=== PATIENT | female | born 1935 | race Caucasian/White ===

== ENCOUNTER → 2016-10-24 | Outpatient (CLI) | payer BC ==
[~2016-10-24] MED LIST: HYDR12.55; LPR25 PO; LPT40 PO; LSN20; NTRSLP4 SL; TMPOPS15
== END | disposition home or self-care (01) ==
LOC: C.MAMM 09:39
PROVIDERS: ATTEND Family Medicine
DX: M85.89 Other specified disorders of bone density and structure, multiple sites (principal)

== ENCOUNTER → 2017-06-27 | Outpatient (CLI) | payer BC | END | disposition home or self-care (01) | LOC: C.PATHSPEC 17:57 | PROVIDERS: ATTEND Plastic Surgery | DX: D17.79 Benign lipomatous neoplasm of other sites (principal) ==

== ENCOUNTER 2020-03-10 14:30 | Observation (INO) ==
--- NOTE | 2020-03-10 15:26 | Emergency Department Note ---
Impression & Plan Left-sided chest pain, Abnormal ECG, Chronic left shoulder pain ED Provider Note INFORMANT: Patient ED PROVIDER(S): Edvin Borges MD CHIEF COMPLAINT: Chest pain PLAN: Disposition: Admitted Condition: Good MEDICAL DECISION MAKING: The patient presented complaining of intermittent left-sided chest pain. She noted it was escalating over the last several days. She has a known history of mild coronary disease from a cath 5 years ago. Her CBC, chemistry panel, LFTs, lipase, and troponin were unremarkable. The patient had a negative chest x-ray. Her ECG did not reveal any obvious acute findings although it is abnormal. She does note ongoing problems with her left shoulder but these issues were not temporally related to the chest pain. Patient did receive aspirin prehospital. Given the complaint of chest pain and her results from 5 years ago further management in the hospital for cardiac rule out is appropriate. I discussed this with the patient. Consultation was made with Dr. Garrido of the [facility] service. Patient was evaluated in the ER for further management. Triage Nursing notes reviewed and agree them. Vital Signs: reviewed and remarkable for no significant abnormalities Differential diagnosis: Cardiac ischemia, aortic dissection, pulmonary embolism, pneumothorax, pneumonia, pericarditis, myocarditis, esophageal rupture, GERD, cholecystitis, pancreatitis, musculoskeletal, as well as other pathologies. Diagnostics interpreted by me: ECG: Twelve-lead ECG revealed a sinus rhythm at 62 bpm. There is a first-degree AV block. Left axis deviation. Incomplete right bundle branch block and septal Q waves. No ST elevation or depression. No PVCs. Cardiac Monitoring: Cardiac monitoring ordered by me: The patient was placed on continuous cardiac monitoring and observed. It revealed a normal sinus rhythm at 55 beats per minute without ectopy or evidence of dysrhythmia. Imaging studies: Chest x-ray. Findings: A chest x-ray was performed and revealed no pneumothorax, effusion, infiltrate, pulmonary edema, free air under the diaphragm, or wide mediastinum. Impression: No acute disease. Consultation(s): [facility] service HPI: The patient is a 84 year old female who presents to the Emergency Room with complaints of intermittent left-sided chest pain. This started about 5 days ago and is and is worsening. The patient also notes the following associated symptoms, feeling hot and flushed with exertion. The patient has taken no medication for relieving factors. Current pain is rated as 0/10. Patient states she has pain in her left breast area but also occasionally in the left shoulder joint. The 2 are not temporally related. She notes she can do physical activity using the left arm without experiencing left shoulder discomfort. She had cardiac catheterization 5 years ago and noted a 30 and 40% blockage. She does have history of hypertension. Pt denies LOC, headache, fevers, chills, diaphoresis, visual changes, neck pain, Covid exposure, flulike symptoms,, breathing difficulties, nausea, vomiting, abdominal pain, back pain, melena, hematochezia, urinary symptoms, numbness, weakness, lymphadenopathy, rash, or other complaints. ROS: See above HPI for pertinent positives & negatives. A total of 10 systems reviewed and were otherwise negative. PAST MEDICAL HISTORY:See Below, hypertension, CAD PAST SURGICAL HISTORY:See Below, cardiac catheterizations FAMILY HISTORY:See Below SOCIAL HISTORY:See Below, non-smoker HOME MEDICATIONS:See Below ALLERGIES:See Below VITALS:See Below PHYSICAL EXAMINATION: GENERAL: Awake, alert, well-appearing, in no distress HENT: Normocephalic, atraumatic. Oropharynx unremarkable. EYES: Normal conjunctiva. Sclera non-icteric. NECK: Inspection normal. Non-tender. Supple. No nuchal rigidity. FROM. No masses. RESPIRATORY: Clear to auscultation. No wheezes. No rales. Normal respiratory effort. CARDIAC: Normal rate. Normal rhythm. No murmurs. No rubs. Extremities warm and well perfused. Pulses equal. No JVD. GI: Soft, non-distended. No tenderness to palpation. No rebound or guarding. No masses. RECTAL: Deferred. MUSCULOSKELETAL: Atraumatic. Chest examination reveals no tenderness. The back is symmetrical on inspection without obvious abnormality. There is no CVA tenderness to palpation. No joint edema. LOWER EXTREMITIES: Calves are equal size bilaterally and non-tender. No edema. No discoloration. NEURO: Normal sensorium. No sensory or motor deficits noted. SKIN: No rash or jaundice noted. Edvin Borges MD Past Med/Surg History Medical History (Updated 03/10/20 @ 21:16 by Edvin Borges MD) HTN (hypertension) Nonobstructive atherosclerosis of coronary artery Surgical History (Updated 03/10/20 @ 18:53 by Piter Main) S/P cataract extraction S/P total abdominal hysterectomy Family History (Updated 03/10/20 @ 18:19 by Piter Main) Father Stroke Mother Alzheimer disease Social History (Updated 03/10/20 @ 18:52 by Piter Main) Smoking Status: Never smoker Hx Alcohol Use: Yes Alcohol type: wine Alcohol Intake Frequency Comment: 1 glass wine/day marital status: Single Current Living Situation: Alone current occupational status: 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 [employer] How many Children do You have: 0 Feels Safe at Home: Yes Allergies Allergies Allergy/AdvReac Type Severity Reaction Status Date / Time latex Allergy Unknown Rash Verified 03/10/20 15:36 Home Meds Home Medications Medication Instructions Recorded Confirmed amlodipine 2.5 mg PO DAILY 03/10/20 03/10/20 calcium carbonate-vitamin D3 1 cap PO BID 03/10/20 03/10/20 [Calcium 600 + D(3)] cholecalciferol (vitamin D3) 2,000 unit PO DAILY 03/10/20 03/10/20 [Vitamin D3] lisinopril 20 mg PO DAILY 03/10/20 03/10/20 metoprolol succinate 25 mg PO BID 03/10/20 03/10/20 hqnevoqv-asn-tgxt-FA-lutein 1 tab PO DAILY 03/10/20 03/10/20 [Multivitamin Women 50 Plus] omega-3 fatty acids [Fish Oil] 1,000 mg PO BID 03/10/20 03/10/20 vitamin E 400 unit PO DAILY 03/10/20 03/10/20 zolpidem 5 mg PO HS PRN 03/10/20 03/10/20 Results & Data (ED) Vital Signs Vital Signs - 24 hr 03/10/20 14:45 03/10/20 15:00 03/10/20 15:14 Temperature 36.8 C Temperature Source Oral Pulse Rate 68 Pulse Rate [Finger] 63 Pulse Rate from SpO2 Sensor Respiratory Rate 18 16 Respiratory Effort / Characteristics Respiratory Depth Blood Pressure 144/65 H Blood Pressure [Right Arm] 159/73 H Blood Pressure Mean 91 Blood Pressure Mean [Right Arm] 101 Pulse Oximetry 98 97 98 Oxygen Delivery Method Room Air Room Air Sepsis Recent Fever Within 48 Hours No Sepsis New/Unexplained Change in Mental Status N/A Sepsis Action Taken by Nursing No Action Required 03/10/20 16:00 03/10/20 16:42 03/10/20 18:33 Temperature Temperature Source Pulse Rate Pulse Rate [Finger] 66 69 81 Pulse Rate from SpO2 Sensor Respiratory Rate 18 18 16 Respiratory Effort / Characteristics Non-Labored Respiratory Depth Normal Blood Pressure Blood Pressure [Right Arm] 155/65 H 148/72 H 170/85 H Blood Pressure Mean Blood Pressure Mean [Right Arm] 95 97 113 Pulse Oximetry 98 98 99 Oxygen Delivery Method Room Air Sepsis Recent Fever Within 48 Hours Sepsis New/Unexplained Change in Mental Status Sepsis Action Taken by Nursing 03/10/20 19:00 03/10/20 19:30 03/10/20 20:00 Temperature Temperature Source Pulse Rate 72 73 65 Pulse Rate [Finger] Pulse Rate from SpO2 Sensor Respiratory Rate 18 21 21 Respiratory Effort / Characteristics Respiratory Depth Blood Pressure 147/74 H 153/69 H 145/62 H Blood Pressure [Right Arm] Blood Pressure Mean 83 79 84 Blood Pressure Mean [Right Arm] Pulse Oximetry 96 97 97 Oxygen Delivery Method Room Air Room Air Room Air Sepsis Recent Fever Within 48 Hours Sepsis New/Unexplained Change in Mental Status Sepsis Action Taken by Nursing 03/10/20 20:30 03/10/20 20:31 Temperature Temperature Source Pulse Rate 65 69 Pulse Rate [Finger] Pulse Rate from SpO2 Sensor 66 Respiratory Rate 12 15 Respiratory Effort / Characteristics Respiratory Depth Blood Pressure 152/64 H Blood Pressure [Right Arm] Blood Pressure Mean 79 Blood Pressure Mean [Right Arm] Pulse Oximetry 96 97 Oxygen Delivery Method Sepsis Recent Fever Within 48 Hours Sepsis New/Unexplained Change in Mental Status Sepsis Action Taken by Nursing Laboratory Data Result diagrams: 03/10/20 15:22 03/10/20 15:22 Lab Results 03/10/20 03/10/20 03/10/20 Range/Units 15:22 15:22 15:22 WBC 6.41 (4.8-10.8) K/uL RBC 4.22 (4.2-5.4) M/uL Hgb 13.9 (12.0-16.0) g/dL Hct 40.3 (37-47) % MCV 95.5 (80-100) fL MCH 32.9 (25-34) pg MCHC 34.5 (32-36) g/dL RDW Std Deviation 45.6 (36.4-46.3) fL RDW Coeff of Mak 13.0 (11.5-14.5) % Plt Count 196 (130-400) K/uL MPV 9.8 (7.4-10.4) fL Immature Gran % (Auto) 0.0 % Neut % (Auto) 67.0 % Lymph % (Auto) 25.6 % [place] % (Auto) 5.9 % Eos % (Auto) 0.9 % Baso % (Auto) 0.6 % Neut # (Auto) 4.29 (1.4-6.5) K/uL Lymph # (Auto) 1.64 (1.2-3.4) K/uL [place] # (Auto) 0.38 (0.11-0.59) K/uL Eos # (Auto) 0.06 (0-0.5) K/uL Baso # (Auto) 0.04 (0-0.2) K/uL Immature Gran # (Auto) 0.00 (0.00-0.02) K/uL PT 11.9 (9.0-12.0) Seconds INR 1.1 (0.9-1.1) APTT 32.7 H (21.0-31.0) Seconds PTT Ratio 1.2 Sodium 138 (136-145) mmol/L Potassium 4.0 (3.5-5.1) mmol/L Chloride 105 (98-107) mmol/L Carbon Dioxide 28 (21-32) mmol/L Anion Gap 5.0 (3-11) BUN 17 (7-18) mg/dl Creatinine 0.78 (0.6-1.2) mg/dl Est Cr Clr Drug Dosing 47.7 ml/min Est GFR ( Amer) 80.3 Est GFR (Non-Af Amer) 69.3 BUN/Creatinine Ratio 21.4 H (10-20) Glucose 110 H (70-99) mg/dl Calcium 9.3 (8.5-10.1) mg/dl Total Bilirubin 0.7 (0.2-1) mg/dl AST 40 H (15-37) U/L ALT 27 (12-78) U/L Alkaline Phosphatase 89 (45-117) U/L Troponin I < 0.015 (0-0.045) ng/ml Total Protein 6.5 (6.4-8.2) gm/dl Albumin 3.5 (3.4-5.0) gm/dl Globulin 3.0 (2.5-4.0) gm/dl Albumin/Globulin Ratio 1.2 (0.9-2) Lipase 135 (73-393) U/L SARS-CoV-2 Ag (Rapid) (Negative) 03/10/20 Range/Units 19:49 WBC (4.8-10.8) K/uL RBC (4.2-5.4) M/uL Hgb (12.0-16.0) g/dL Hct (37-47) % MCV (80-100) fL MCH (25-34) pg MCHC (32-36) g/dL RDW Std Deviation (36.4-46.3) fL RDW Coeff of Mak (11.5-14.5) % Plt Count (130-400) K/uL MPV (7.4-10.4) fL Immature Gran % (Auto) % Neut % (Auto) % Lymph % (Auto) % [place] % (Auto) % Eos % (Auto) % Baso % (Auto) % Neut # (Auto) (1.4-6.5) K/uL Lymph # (Auto) (1.2-3.4) K/uL [place] # (Auto) (0.11-0.59) K/uL Eos # (Auto) (0-0.5) K/uL Baso # (Auto) (0-0.2) K/uL Immature Gran # (Auto) (0.00-0.02) K/uL PT (9.0-12.0) Seconds INR (0.9-1.1) APTT (21.0-31.0) Seconds PTT Ratio Sodium (136-145) mmol/L Potassium (3.5-5.1) mmol/L Chloride (98-107) mmol/L Carbon Dioxide (21-32) mmol/L Anion Gap (3-11) BUN (7-18) mg/dl Creatinine (0.6-1.2) mg/dl Est Cr Clr Drug Dosing ml/min Est GFR ( Amer) Est GFR (Non-Af Amer) BUN/Creatinine Ratio (10-20) Glucose (70-99) mg/dl Calcium (8.5-10.1) mg/dl Total Bilirubin (0.2-1) mg/dl AST (15-37) U/L ALT (12-78) U/L Alkaline Phosphatase (45-117) U/L Troponin I (0-0.045) ng/ml Total Protein (6.4-8.2) gm/dl Albumin (3.4-5.0) gm/dl Globulin (2.5-4.0) gm/dl Albumin/Globulin Ratio (0.9-2) Lipase (73-393) U/L SARS-CoV-2 Ag (Rapid) Negative (Negative) Administered Medications Discontinued Medications Lisinopril (Lisinopril 20 Mg Tab) 20 mg PO NOW STA Stop: 03/10/20 18:54 Last Admin: 03/10/20 19:10 Dose: 20 mg Documented by: [id number] Discharge Plan Visit Data Chief Complaint: Cardiac Assessment Stated Complaint: Intermittent Chest Pain ED Provider: Edvin Borges Discharge Problem: Left-sided chest pain, Abnormal ECG, Chronic left shoulder pain Forms Stand Alone Forms: [facility] Prescriptions Prescriptions: No Action lisinopril 20 mg tablet 20 mg PO DAILY RF: 0 amlodipine 2.5 mg tablet 2.5 mg PO DAILY RF: 0 zolpidem 5 mg tablet 5 mg PO HS PRN (Reason: Sleep) RF: 0 metoprolol succinate 25 mg tablet extended release 24 hr 25 mg PO BID RF: 0 vitamin E 400 unit Capsule 400 unit PO DAILY RF: 0 Fish Oil Capsule 1,000 mg PO BID RF: 0 Calcium 600 + D(3) 600 mg calcium- 200 unit Capsule 1 cap PO BID RF: 0 cholecalciferol (vitamin D3) [Vitamin D3] 50 mcg (2,000 unit) Tablet 2,000 unit PO DAILY RF: 0 Multivitamin Women 50 Plus 8 mg iron-400 mcg-300 mcg Tablet 1 tab PO DAILY RF: 0
[2020-03-10 15:34] LABS: Basophils # (auto) 0.04 K/uL (0-0.2); Basophils % (auto) 0.6 %; Eosinophils # (auto) 0.06 K/uL (0-0.5); Eosinophils % (auto) 0.9 %; Hematocrit (blood only) 40.3 % (37-47); Hemoglobin 13.9 g/dL (12.0-16.0); Lymphocytes # (auto) 1.64 K/uL (1.2-3.4); Lymphocytes % (auto) 25.6 %; Mean Corpuscular Hemoglobin 32.9 pg (25-34); Mean Corpuscular Hgb Conc 34.5 g/dL (32-36); Mean Corpuscular Volume 95.5 fL (80-100); Mean Platelet Volume 9.8 fL (7.4-10.4); Monocytes # (auto) 0.38 K/uL (0.11-0.59); Monocytes % (auto) 5.9 %; Neutrophils # (auto) 4.29 K/uL (1.4-6.5); Platelet Count 196 K/uL (130-400); RDW Standard Deviation 45.6 fL (36.4-46.3); Red Blood Count 4.22 M/uL (4.2-5.4); White Blood Count 6.41 K/uL (4.8-10.8)
--- NOTE | 2020-03-10 15:41 | Electrocardiogram Report ---
Test Reason : Blood Pressure : / mmHG Vent. Rate : 068 BPM Atrial Rate : 068 BPM P-R Int : 210 ms QRS Dur : 092 ms QT Int : 388 ms P-R-T Axes : 068 -34 080 degrees QTc Int : 412 ms Sinus rhythm with 1st degree A-V block Left axis deviation Abnormal ECG When compared with ECG of 13-NOV-2014 13:33, No significant change was found Confirmed by Loc Denise ([id number]) on 03/10/2020 3:41:10 PM Referred By: Confirmed By:Andrew Denise
--- NOTE | 2020-03-10 15:54 | XRay Report ---
XR chest 1V portable HISTORY: 84 years-old Female Chest Pain acute atypical chest pain COMPARISON: Chest and rib radiographs 05/22/2008 TECHNIQUE: Portable AP view of the chest FINDINGS: Cardiac silhouette is mildly enlarged. No pneumothorax, pleural effusion, airspace consolidation or o vert pulmonary edema. Calcified plaque of the thoracic aorta. Degenerative changes of the shoulders a nd spine. IMPRESSION: No acute process. ACT 112: Negative or not required by law. The above report was generated using voice recognition software. It may contain grammatical, syntax o r spelling errors. Electronically signed by: Anthony Pugh M.D. 03/10/2020 3:53 PM
[2020-03-10 15:57] LABS: INR 1.1 (0.9-1.1); Partial Thromboplastin Ratio 1.2; Partial Thromboplastin Time 32.7 Seconds (21.0-31.0); Prothrombin Time 11.9 Seconds (9.0-12.0)
[2020-03-10 16:00] LABS: Alanine Aminotransferase 27 U/L (12-78); Albumin Level 3.5 gm/dl (3.4-5.0); Aspartate Aminotransferase 40 U/L (15-37); BUN Creatinine Ratio 21.4 (10-20); Blood Urea Nitrogen 17 mg/dl (7-18); Calcium 9.3 mg/dl (8.5-10.1); Carbon Dioxide 28 mmol/L (21-32); Chloride 105 mmol/L (98-107); Creatinine Clr Calc Pharmacy 47.7 ml/min; Est GFR (African American) 80.3; Est GFR (Non-African American) 69.3; Glucose 110 mg/dl (70-99); Lipase 135 U/L (73-393); Sodium 138 mmol/L (136-145)
[2020-03-10 16:04] LABS: Albumin Globulin Ratio 1.2 (0.9-2); Alkaline Phosphatase 89 U/L (45-117); Bilirubin,Total 0.7 mg/dl (0.2-1); Total Protein 6.5 gm/dl (6.4-8.2); Troponin I < 0.015 ng/ml (0-0.045)
--- NOTE | 2020-03-10 18:18 | History & Physical Report ---
Date of Service March 10, 2020 Assessment & Plan (1) Chest pain: Pain is quite atypical. Symptoms are at rest, never with exertion, and come/go without any specific inciting activity/event. No pleuritic quality. Chest pain is some what reproducible on exam but it is not the same pain that she feels when she has pain at home. It is possible that BP spikes cause some of her discomfort. I do believe the left shoulder pain is a separate issue from her chest pain. Her left shoulder exam is consistent with OA. [id number] she did have nonobstructive CAD on cath in 2014. Thus, plan to place on telemetry, obtain serial troponins, obtain echo in am, and consider stress test and/or cardiology evaluation. (2) HTN (hypertension): Continue her usual regimen of amlodipine, metoprolol, and lisinopril. Follow BPs. (3) Nonobstructive atherosclerosis of coronary artery: 06/2014 heart catheterization [facility] - 40% LAD lesion 30% RCA lesion Cont BB Cont GO I have no LDL on file in her [facility] chart - will obtain fasting lipids am (4) GERD (gastroesophageal reflux disease): I do not believe current symptoms are due to GERD (5) Shoulder pain: Left. advanced OA? referred pain from heart? referred pain from cervical spine DJD? other? start with x-rays. voltaren gel 4gm qid to left shoulder. (6) Neck pain: suspect DJD c-spine. start with x-rays. if DJD is present could be causing referred pain to L shoulder. can also use voltaren gel prn to back of neck if desired. no symptoms to suggest PMR. (7) Chronic kidney disease, stage 3a: baseline CrCl 40s bmp in am for stability (8) DVT prophylaxis: heparin [address] on observation status History of Present Illness Chief Complaint: left-sided chest pain Primary Care Provider: Bryant Pinedo 84yo female with history of HTN who presents with multiple complaints including central/left-sided chest pain, elevated blood pressures, and left shoulder pain. She has had multiple episodes of chest pain that "come and go". Episodes have been occurring over the last few days. When her blood pressure rises she feels that this causes the chest pain and left shoulder pain. She has been getting readings of 140 or higher systolically for several days. At about 1pm today she also developed posterior neck pain/occipital pain. She did have associated chest pain/shoulder pain at the same time as the neck pain today. The neck pain was unusual for her. Her BP was 175/79 during the occipital pain episode today. No dyspnea. Symptoms are at rest. Denies exertional symptoms. 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 Had left heart cath in 2014 showing nonobstructive CAD (40% LAD lesion, 30% RCA lesion). Allergies Allergy/AdvReac Type Severity Reaction Status Date / Time latex Allergy Unknown Rash Verified 03/10/20 15:36 Home Medications Medication Instructions Recorded Confirmed Type amlodipine 2.5 mg PO DAILY 03/10/20 03/10/20 History calcium carbonate-vitamin D3 1 cap PO BID 03/10/20 03/10/20 History [Calcium 600 + D(3)] cholecalciferol (vitamin D3) 2,000 unit PO DAILY 03/10/20 03/10/20 History [Vitamin D3] lisinopril 20 mg PO DAILY 03/10/20 03/10/20 History metoprolol succinate 25 mg PO BID 03/10/20 03/10/20 History felfupbt-jad-jfiu-FA-lutein 1 tab PO DAILY 03/10/20 03/10/20 History [Multivitamin Women 50 Plus] omega-3 fatty acids [Fish Oil] 1,000 mg PO BID 03/10/20 03/10/20 History vitamin E 400 unit PO DAILY 03/10/20 03/10/20 History zolpidem 5 mg PO HS PRN 03/10/20 03/10/20 History Past Med/Surg History Medical History (Updated 03/10/20 @ 22:04 by Piter Main) HTN (hypertension) Nonobstructive atherosclerosis of coronary artery Surgical History (Updated 03/10/20 @ 18:53 by Piter Main) S/P cataract extraction S/P total abdominal hysterectomy Family History (Updated 03/10/20 @ 18:19 by Piter Main) Father Stroke Mother Alzheimer disease Social History (Updated 03/10/20 @ 21:56 by Piter Main) Smoking Status: Never smoker Hx Alcohol Use: Yes Alcohol type: wine Alcohol Intake Frequency Comment: 1 glass wine/day marital status: Single Current Living Situation: Alone current occupational status: 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 How many Children do You have: 0 Feels Safe at Home: Yes Review of Systems Constitutional: no fever, no chills, no fatigue, no weakness, no anorexia, no weight loss and no weight gain Eyes: no worsening vision Ear, Nose, Mouth, Throat: no loss of taste or smell Respiratory: no cough, no dyspnea and no dyspnea on exertion Cardiovascular: as per Subjective / HPI and + chest pain; no orthopnea, no palpitations and no edema Gastrointestinal: no abdominal pain, no nausea and no vomiting occasional reflux Genitourinary: no dysuria Musculoskeletal: no body aches Integumentary: no rash Neurologic: no paresthesia Psychiatric: + anxiety Endocrine: denies diabetes Hematologic / Lymphatic: no easy bruising Physical Exam Constitutional: well developed and well nourished; no acute distress and no altered mental status Eyes: + conjunctival abnormality (subconjunctival hemorrhage, right eye ) and PERRL ENMT: external ear and nose normal, oropharynx normal Neck: mild restriction of rotation of neck; mild tenderness over paraspinals on left Respiratory: normal respiratory effort, lungs clear to auscultation Cardiovascular: Rate/Rhythm: regular rate and regular rhythm Heart Sounds: normal S1 and normal S2; no murmur Vessels: posterior tibial pulses present and dorsalis pedis pulses present; no JVD Extremities: no edema Chest (Breasts): Additional Comments: mild reproducible chest wall pain on left, but pain is different than the pain she has been having over the last few days Gastrointestinal (Abdomen): normal bowel sounds, soft, nontender, no hepatosplenomegaly Musculoskeletal: left shoulder - crepitus with passive ROM; pain over AC joint with cross-table adduction and palpation; minimal pain with external/internal rotation; mild effusion? Skin: no rashes, warm and dry Neurologic: deep tendon reflexes 2+ bilaterally and moves all extremities; no focal motor deficits Results & Data Results & Data ([facility]) Vital Signs (Past 12 Hours) Vital Signs Temp Pulse Pulse Resp BP BP Pulse Ox 03/10/20 16:42 69 18 148/72 H 98 03/10/20 16:00 66 18 155/65 H 98 03/10/20 15:14 63 16 159/73 H 98 03/10/20 15:00 97 03/10/20 14:45 36.8 C 68 18 144/65 H 98 Laboratory Results Laboratory Results - last 24 hr 03/10/20 03/10/20 03/10/20 15:22 15:22 15:22 WBC 6.41 RBC 4.22 Hgb 13.9 Hct 40.3 MCV 95.5 MCH 32.9 MCHC 34.5 RDW Std Deviation 45.6 RDW Coeff of Mak 13.0 Plt Count 196 MPV 9.8 Immature Gran % (Auto) 0.0 Neut % (Auto) 67.0 Lymph % (Auto) 25.6 [place] % (Auto) 5.9 Eos % (Auto) 0.9 Baso % (Auto) 0.6 Neut # (Auto) 4.29 Lymph # (Auto) 1.64 [place] # (Auto) 0.38 Eos # (Auto) 0.06 Baso # (Auto) 0.04 Immature Gran # (Auto) 0.00 PT 11.9 INR 1.1 APTT 32.7 H PTT Ratio 1.2 Sodium 138 Potassium 4.0 Chloride 105 Carbon Dioxide 28 Anion Gap 5.0 BUN 17 Creatinine 0.78 Est Cr Clr Drug Dosing 47.7 Est GFR ( Amer) 80.3 Est GFR (Non-Af Amer) 69.3 BUN/Creatinine Ratio 21.4 H Glucose 110 H Calcium 9.3 Total Bilirubin 0.7 AST 40 H ALT 27 Alkaline Phosphatase 89 Troponin I < 0.015 Total Protein 6.5 Albumin 3.5 Globulin 3.0 Albumin/Globulin Ratio 1.2 Lipase 135 SARS-CoV-2 Ag (Rapid) 03/10/20 19:49 WBC RBC Hgb Hct MCV MCH MCHC RDW Std Deviation RDW Coeff of Mak Plt Count MPV Immature Gran % (Auto) Neut % (Auto) Lymph % (Auto) [place] % (Auto) Eos % (Auto) Baso % (Auto) Neut # (Auto) Lymph # (Auto) [place] # (Auto) Eos # (Auto) Baso # (Auto) Immature Gran # (Auto) PT INR APTT PTT Ratio Sodium Potassium Chloride Carbon Dioxide Anion Gap BUN Creatinine Est Cr Clr Drug Dosing Est GFR ( Amer) Est GFR (Non-Af Amer) BUN/Creatinine Ratio Glucose Calcium Total Bilirubin AST ALT Alkaline Phosphatase Troponin I Total Protein Albumin Globulin Albumin/Globulin Ratio Lipase SARS-CoV-2 Ag (Rapid) Negative Diagnostic Findings 1. cxr - no infiltrates. 2. EKG - my reading - NSR, nonspecific ST changes V2, otherwise no ST changes. Code Status & VTE Plan Code Status DNR/DNI VTE Prophylaxis Plan VTE Prophylaxis will be ordered: Yes PG Care Time/CCT Total # of Minutes Spent Total Time Spent with Patient: Total time spent is greater than 50% in coordination of care (as documented) at patient's floor/unit and/or counseling patient: Coding Level of Care Code 11678 OBS Care - Level 2 Diagnoses Chest pain R07.9 Chest pain type: unspecified HTN (hypertension) I10 Hypertension type: essential hypertension Nonobstructive atherosclerosis of coronary artery I25.10 GERD (gastroesophageal reflux disease) K21.9 Esophagitis presence: without esophagitis Shoulder pain M25.512; G89.29 Chronicity: chronic Laterality: left Neck pain M54.2 Chronic kidney disease, stage 3a N18.31 DVT prophylaxis Z29.9 (1) GERD (gastroesophageal reflux disease) Esophagitis presence: without esophagitis Qualified Code(s): K21.9 - Gastro- esophageal reflux disease without esophagitis (2) Chest pain Chest pain type: unspecified Qualified Code(s): R07.9 - Chest pain, unspecified (3) HTN (hypertension) Hypertension type: essential hypertension Qualified Code(s): I10 - Essential (primary) hypertension (4) Shoulder pain Chronicity: chronic Laterality: left Qualified Code(s): M25.512 - Pain in left shoulder; G89.29 - Other chronic pain
[2020-03-10] MEDS ORDERED: lisinopril 20 MG TAB PO STA (18:53)
[2020-03-10] MEDS ORDERED: NITROGLYCERIN SL 0.4 MG/TAB TAB SL PRN (22:07)
[2020-03-10] MEDS ORDERED: lisinopril 20 MG TAB PO SCH (22:07)
[2020-03-10] MEDS ORDERED: ACETAMINOPHEN 325 MG TAB PO PRN (22:07)
[2020-03-10] MEDS ORDERED: ZOLPIDEM TARTRATE 5 MG TAB PO PRN (22:07)
[2020-03-10] MEDS ORDERED: ONDANSETRON INJ 2 MG/ML 2 ML VIAL IV PRN (22:07)
[2020-03-10] MEDS: OMEGA-3 (PURIFIED FISH OIL) 1 GM CAP PO SCH ×2 (23:13→23:19)
[2020-03-10] MEDS: CALCIUM 600MG + VIT D 400 IU TAB PO SCH ×2 (23:14→23:18)
[2020-03-10] MEDS: METOPROLOL SUCC 25MG EXT REL TAB PO SCH (23:14)
[2020-03-10] MEDS: DICLOFENAC SOD 1% GEL 100 GM TUBE EXT SCH (23:15)
[2020-03-10] MEDS: HEPARIN SOD 5,000 UNIT/0.5 ML VIAL SQ SCH (23:19)
--- NOTE | 2020-03-11 07:14 | XRay Report ---
LEFT SHOULDER 3 VIEWS HISTORY: left AC joint OA/glenohumueral pain COMPARISON: None. FINDINGS: There is no fracture or dislocation. Soft tissues are unremarkable. The left clavicle is in tact. AC joint is obscured by overlying button. There is suggestion of mild AC joint arthrosis. There is mild cartilage space narrowing and small marginal osteophytes within the glenohumeral joint also consistent with degenerative change. IMPRESSION: Mild osteoarthritis within the left shoulder. No fractures. ACT 112: Negative or not required by law. Electronically signed by: Albaro Mixon M.D. 03/11/2020 7:13 AM
--- NOTE | 2020-03-11 07:27 | XRay Report ---
XR cervical spine 2 or 3V CLINICAL HISTORY: neck pain COMPARISON STUDY: No previous studies for comparison. FINDINGS: Degenerative changes are present most pronounced the C5-C6 level. No fractures or subluxati ons are visualized. The patient's neck is tilted to the right. IMPRESSION: No fractures or subluxations identified. Degenerative changes most pronounced the C5-6 l evel. ACT 112: Negative or not required by law. Electronically signed by: Umang Falk M.D. 03/11/2020 7:25 AM
[2020-03-11 08:10] LABS: Blood Urea Nitrogen 10 mg/dl (7-18); Calcium 9.1 mg/dl (8.5-10.1); Carbon Dioxide 26 mmol/L (21-32); Chloride 108 mmol/L (98-107); Chol HDL Ratio 2; Cholesterol 158 mg/dl (0-200); Creatinine Clr Calc Pharmacy 51.7 ml/min; Est GFR (African American) 88.5; Est GFR (Non-African American) 76.4; Glucose 99 mg/dl (70-99); HDL Cholesterol 91 mg/dl; LDL Cholesterol Calculated 56 mg/dl; Potassium 3.9 mmol/L (3.5-5.1); Sodium 139 mmol/L (136-145); Triglycerides 53 mg/dl (0-150); Troponin I < 0.015 ng/ml (0-0.045); VLDL Cholesterol 11 mg/dl
[2020-03-11] MEDS: METOPROLOL SUCC 25MG EXT REL TAB PO SCH (08:27)
[2020-03-11] MEDS: DICLOFENAC SOD 1% GEL 100 GM TUBE EXT SCH ×2 (08:28→12:45)
[2020-03-11] MEDS: CALCIUM 600MG + VIT D 400 IU TAB PO SCH (08:28)
[2020-03-11] MEDS: HEPARIN SOD 5,000 UNIT/0.5 ML VIAL SQ SCH (08:28)
[2020-03-11] MEDS: OMEGA-3 (PURIFIED FISH OIL) 1 GM CAP PO SCH (08:28)
[2020-03-11] MEDS ORDERED: CHOLECALCIFEROL 1,000 UNITS 25 MCG TAB PO SCH (09:00)
[2020-03-11] MEDS ORDERED: CEROVITE ADV FORMULA TAB PO SCH (09:00)
[2020-03-11] MEDS ORDERED: TOCOPHERYL, DL-ALPHA 400 UNITS CAP PO SCH (09:00)
[2020-03-11] MEDS ORDERED: amLODIPine BESYLATE 5 MG TAB PO SCH (09:00)
--- NOTE | 2020-03-11 12:01 | XCELERA ---
[id number] \\[id number]___[id number]
--- NOTE | 2020-03-11 12:05 | XCELERA ---
[id number] \\[id number]___[id number]
--- NOTE | 2020-03-11 13:28 | Discharge Summary ---
Date of Service March 11, 2020 Admission HPI Per Admitting Provider 84yo female with history of HTN who presents with multiple complaints including central/left-sided chest pain, elevated blood pressures, and left shoulder pain. She has had multiple episodes of chest pain that "come and go". Episodes have been occurring over the last few days. When her blood pressure rises she feels that this causes the chest pain and left shoulder pain. She has been getting readings of 140 or higher systolically for several days. At about 1pm today she also developed posterior neck pain/occipital pain. She did have associated chest pain/shoulder pain at the same time as the neck pain today. The neck pain was unusual for her. Her BP was 175/79 during the occipital pain episode today. No dyspnea. Symptoms are at rest. Denies exertional symptoms. 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 Had left heart cath in 2014 showing nonobstructive CAD (40% LAD lesion, 30% RCA lesion). Principal Diagnosis Atypical chest pain Discharge Exam Constitutional WD/WN, vitals as above Eyes PERRL, conjunctivae normal, anicteric sclerae ENMT external ear and nose normal, oropharynx normal Neck trachea midline, no thyromegaly Respiratory normal respiratory effort, lungs clear to auscultation Cardiovascular RRR, no murmur, no edema Chest (Breasts) Chest: normal inspection of chest Gastrointestinal (Abdomen) normal bowel sounds, soft, nontender, no hepatosplenomegaly Musculoskeletal Extremities: extremities normal to inspection; no cyanosis and no clubbing Skin no rashes, warm and dry Neurologic moves all extremities and awake; no focal motor deficits Psychiatric A+Ox3, euthymic affect Lymphatic no lymphedema Discharge Data Allergies Allergy/AdvReac Type Severity Reaction Status Date / Time latex Allergy Unknown Rash Verified 03/10/20 15:36 Consultations 03/10/20 17:29 ED Decision to Admit Stat Procedures Performed ECHO Stress ECHO Ordered Studies CXR Hospital Course (1) Chest pain: Pain is quite atypical. Symptoms are at rest, never with exertion, and come/go without any specific inciting activity/event. Although by the next day she reported it seems to come on after eating and thinks it was from acid reflux. No pleuritic quality. Chest pain is some what reproducible on exam but it is not the same pain that she feels when she has pain at home. It is possible that BP spikes cause some of her discomfort. I do believe the left shoulder pain is a separate issue from her chest pain. Her left shoulder exam is consistent with OA. [id number]-[id number] she did have nonobstructive CAD on cath in 2014. - serial troponins negative, ECG without ischemia ECHO normal except mild AI Stress ECHO negative for inducible ischemia -advised Protonix 40mg po once daily x 2 weeks after discharge Continue Voltaren gel for left shoulder pain (2) HTN (hypertension): BPs elevated on admission and at home--> may be secondary to pain or may be cause of pain? -increase amlodipine to 5mg daily -continue home metoprolol and lisinopril. Follow BPs at home after discharge. (3) Nonobstructive atherosclerosis of coronary artery: 06/2014 heart catheterization [facility] - 40% LAD lesion 30% RCA lesion Cont BB Cont GO lipids here excellent (4) GERD (gastroesophageal reflux disease): chest pain likely from GERD start Protonix x 2 week course (5) Shoulder pain: Left. xrays with OA voltaren gel 4gm qid to left shoulder. f/u with PCP (6) Neck pain: xrays with OA can also use voltaren gel prn to back of neck if desired. no symptoms to suggest PMR. 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 (8) DVT prophylaxis: heparin 5000 BID Dispo-stable for dc to home Total Time Total Time Spent Total Time Spent (In Minutes): 35 min Total Time Includes: Examination of the Patient, Discharge Planning and Medication Reconciliation Discharge Plan Discharge Items Patient Disposition: Home - Self-Care Reason For Visit: Chest Pain Discharge Diagnosis: Atypical chest pain Condition on Discharge: Good Activity: Resume your previous activity Non-emergency contact: Primary Care Provider Call non-emergency contact if: you have any medication questions, your symptoms worsen, your pain is not controlled, your pain is worsening, your pain is unusual for you and your pain is concerning for you Follow-up/Referrals: Bryant Pinedo [Primary Care Provider] - Diet: Heart Healthy Addtl Attending Provider Instructions: You were admitted with chest pain and were ruled out for heart problems. Your cardiac stress test was normal. Your pain may be from acid reflux and you should take protonix once daily x 2 weeks. Please continue the Voltaren gel to your left shoulder as needed for pain. Your amlodipine will be increased to 5mg daily to better control your blood presure. Please follow up with your PCP within 1-2 weeks after discharge. Pending Studies at Discharge: No Stand-Alone Forms: [facility] Medications and DC Order Prescriptions: New amlodipine [Norvasc] 5 mg Tablet 5 mg PO DAILY Qty: 30 RF: 0 diclofenac sodium [Voltaren] 1 % Gel 4 g EXT QID Qty: 100 RF: 0 pantoprazole [Protonix] 40 mg tablet,delayed release (DR/EC) 40 mg PO DAILY Qty: 14 RF: 0 Continued lisinopril 20 mg tablet 20 mg PO DAILY RF: 0 zolpidem 5 mg tablet 5 mg PO HS PRN (Reason: Sleep) RF: 0 metoprolol succinate 25 mg tablet extended release 24 hr 25 mg PO BID RF: 0 vitamin E 400 unit Capsule 400 unit PO DAILY RF: 0 omega-3 fatty acids Capsule 1,000 mg PO BID RF: 0 Calcium 600 + D(3) 600 mg calcium- 200 unit Capsule 1 cap PO BID RF: 0 cholecalciferol (vitamin D3) [Vitamin D3] 50 mcg (2,000 unit) Tablet 2,000 unit PO DAILY RF: 0 Multivitamin Women 50 Plus 8 mg iron-400 mcg-300 mcg Tablet 1 tab PO DAILY RF: 0 Discontinued amlodipine 2.5 mg tablet 2.5 mg PO DAILY RF: 0 Discharge Orders: Discharge Order (Routine); Ordered 03/11/20 Ordered By: Sharron Cohen Admission Data Admit Date/Time: 03/10/20 18:57 Attending Provider: Sharron Cohen Admit Provider: Piter Main Primary Care Provider: Bryant Pinedo Other Providers: Piter Main Coding Level of Care Code 41153 OBS Care - Discharge Diagnoses Chest pain R07.9 Chest pain type: unspecified HTN (hypertension) I10 Hypertension type: essential hypertension Nonobstructive atherosclerosis of coronary artery I25.10 GERD (gastroesophageal reflux disease) K21.9 Esophagitis presence: without esophagitis Shoulder pain M25.512; G89.29 Chronicity: chronic Laterality: left Neck pain M54.2 Chronic kidney disease, stage 3a N18.31 DVT prophylaxis Z29.9
== END 2020-03-11 14:23 | disposition home or self-care (01) ==
LOC: ED 14:30 → 2N 14:30 → SUATTDRO 18:57 → 2N 21:30